=== PATIENT | female | born 1960 | race African-American/Black ===

== ENCOUNTER 2019-06-12 17:29 | Emergency (ER) | payer OTHER ==
[~2019-06-12] VITALS: Ht 167.6 cm; Wt 58.0 kg
[2019-06-12] MEDS ORDERED: KETOROLAC 60MG/2ML VIAL IM ONE (23:00)
[2019-06-12] MEDS ORDERED: TETANUS, DIPHTHERIA, PERTUSSIS VAC/PF 0.5ML (>7YR OLD) IM ONE (23:00)
[2019-06-13] MEDS ORDERED: HYDROCODONE/ACETAMINOPHEN 10/325MG TABLET PO ONE (01:15)
[2019-06-13 02:51] VITALS: BP 113/66
== END 2019-06-13 02:56 | disposition home or self-care (01) ==
LOC: ER 17:29
DX: S42.001A Fracture of unspecified part of right clavicle, initial encounter for closed fracture (principal); S70.01XA Contusion of right hip, initial encounter; F12.10 Cannabis abuse, uncomplicated; F17.210 Nicotine dependence, cigarettes, uncomplicated; Z71.6 Tobacco abuse counseling; V00.831A Fall from motorized mobility scooter, initial encounter; Y93.89 Activity, other specified; Y92.488 Other paved roadways as the place of occurrence of the external cause
CPT/HCPCS: 71045; 73502; 73562; 90471; 90715; 96372; 99283; 99406; J1885; Z7610